=== PATIENT | female | born 1955 | race Caucasian/White ===

== ENCOUNTER → 2017-04-23 | Outpatient (CLI) | payer OTHER ==
--- NOTE | 2017-04-23 15:34 | WWHP ---
[facility] - HISTORY AND PHYSICAL DATE OF DICTATION: 04/23/2017 CHIEF COMPLAINT: The patient is here for her routine gynecologic exam and mammogram. HPI: This is a 61-year-old, G3, P3 with an LMP of 1998. The patient is without gynecologic complaints and denies any postmenopausal bleeding. PAST MEDICAL HISTORY: COPD with Alpha-1 antitrypsin deficiency, gastroesophageal reflux disease, elevated cholesterol, tachycardia, and osteopenia. She has completed a 5-year use of Fosamax. MEDICATIONS: 1. Benzonatate 100 mg t.i.d. p.r.n. 2. Doxycycline 100 mg 1 b.i.d. 3. Mucinex generic 600 mg b.i.d. 4. Prednisone 10 mg as directed. 5. Tylenol #3 one q.6 hours p.r.n. 6. Albuterol inhaler 2 puffs q.4 hours p.r.n. 7. Alprazolam 0.25 mg t.i.d. p.r.n. 8. Atenolol 25 mg daily. 9. Symbicort generic 2 puffs b.i.d. 10.Calcium with vitamin D 1 tablet daily. 11.Hydrochlorothiazide 12.5 mg daily. 12.Xopenex generic nebulizer used q.i.d. 13.Singulair generic 10 mg daily. 14.Omeprazole 20 mg daily. 15.Alpha-1 proteinase inhibit 1 infusion per week. 16.Simvastatin 20 mg daily. 17.Vitamin B12 two hundred fifty mcg daily. 18.Vitamin D3 two thousand units daily. ALLERGIES: No known drug allergies. 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 SOCIAL HISTORY: She quit smoking in 1995 and has about 1 alcohol-containing drink per year. She denies drug use. She is and is not seeing anybody at this time. She is considered disabled. REVIEW OF SYSTEMS: She has gained about 40 pounds over the last year. She denies cardiac or GI problems. RESPIRATORY: She has continued to have COPD issues, but it has been relatively stable recently. : She does have situations where she has to get to the bathroom right away or she will leak. PHYSICAL EXAM: Blood pressure 130/62, height 5 feet 4 inches, weight 241 pounds, temperature 96.7, pulse 94. This is a well-developed, obese white female who is alert and oriented x3, in no acute distress. HEENT is within normal limits. NECK: Supple without mass or thyromegaly. CHEST AND LUNGS: There is prolonged expiration without wheezes, consistent with her COPD. There is no significant rales or rhonchi noted. Breath sounds are somewhat distant. HEART: Regular rate and rhythm. Breasts are without mass or discharge. Axillary exam is negative for adenopathy. BACK: Negative for CVA tenderness. ABDOMEN: Obese, soft, nontender, without palpable masses. PELVIC EXAM: External genitalia reveals mild atrophy without lesions. Cervix and vagina reveals mild atrophy without lesions. There is no evidence of prolapse. By manual exam, the uterus is mid position, nongravid size and nontender. There are no palpable adnexal masses or tenderness. By manual exam is somewhat limited secondary to her size. Rectovaginal exam is negative for mass or tenderness and is negative for occult blood. EXTREMITIES: Nontender. IMPRESSION: 1. A 61-year-old menopausal female with normal gynecologic exam. 2. Multiple medical problems. 3. Obesity. 4. History of osteopenia, status post 5 years use of Fosamax which was discontinued in the past. PLAN: 1. Pap smear was performed. 2. Self breast examination was discussed. 3. Mammogram will be done today. 4. Osteoporosis prevention was discussed. Will do a bone density test today. 5. She will return in 1 year. MMODL / IJN: [id number] /
--- NOTE | 2017-04-24 11:21 | BD ---
EXAMINATION TYPE: MG DEXA axial skeleton. DATE OF EXAM: 04/23/2017 COMPARISON: 04/08/2012 CLINICAL HISTORY: Postmenopausal female. Screening. Height: 64 IN Weight: 238 LBS FRAX RISK QUESTIONS: Alcohol (3 or more units per day): NO Family History (Parent hip fracture): NO Glucocorticoids (More than 3mos): YES 30 MG 3 TIMES PER DAY (Ex: prednisone, prednisolone, methylprednisolone, dexamethasone, and hydrocortisone). History of Fracture in Adulthood: NO Secondary Osteoporosis: 1. Type 1 Diabetes: NO 2. Hyperthyroidism: NO 3. Menopause before 45: YES AGE 41 4. Malnutrition: NO 5. Chronic liver disease: NO Rheumatoid Arthritis: NO Current Tobacco Use: NO RISK FACTORS HISTORY OF: Active: VERY LIMITED Diet low in dairy products/other sources of calcium: YES Postmenopausal woman: AGE 41 Take estrogen and/or progesterone medications: NOT NOW How long: AGE 38 - 41 Poor Health: YES MEDICATIONS: Prednisone or other steroids: YES 30 MG X 3 TIMES PER DAY How Lon + YEARS Osteoporosis Medications: NONE NOW Which medication: Actonel How Long: AGE 50 - 55 Additional Medications: CALCIUM, VIT D, DOXYCYCLINE,GUAIFENNESIN, PREDNISONE,ACETAMINOPHEN-CODEINE, A LBUTEROL, ALPRAZOLAM, ATENOLOL, BUDESONIDE-FORMOTEROL, CETRIZINE,HCTZ, LEVALBUTEROL, MONTELUKAST, OME PRAZOLE, PROLASTIN-C, SIMVASTATIN, VIT B12, EXAM MEASUREMENTS: Bone mineral densitometry was performed using the Macromill System. Bone mineral density as measured about the Lumbar spine is: ----- L1-L4(G/cm2): 1.101 T Score Values are as follows: ----- L2: -0.8 ----- L3: -0.9 ----- L4: -0.4 ----- L1-L4: -0.7 Bone mineral density has: Increased 3.9% since study of: 04/08/2012 Bone mineral density about the R hip (g/cm2): 0.832 Bone mineral density about the L hip (g/cm2): 0.862 T Score values are as follows: -----R Neck: -1.5 -----L Neck: -1.3 -----R Total: -0.9 -----L Total: -1.2 Bone mineral density has: Decreased -0.8% since study of: 04/08/2012 IMPRESSION: Osteopenia (T Score between -2.5 and -1 ) as noted by T score values with regards to both hips. There is slightly increased risk of fracture and the patient may be considered for treatment. Re-Screen 2-5 years. NOTE: T-SCORE=SD OF THE YOUNG ADULT MEAN.
--- NOTE | 2017-04-25 08:15 | MM ---
Reason for exam: screening (asymptomatic). Last mammogram was performed 2 years ago. History: Patient is postmenopausal. Family history of premenopausal breast cancer in maternal cousin. Took estrogen for 3 years 1 month. Physical Findings: A clinical breast exam by your physician is recommended on an annual basis and results should be correlated with mammographic findings. MG 3D Screening Mammo W/Cad Bilateral CC and MLO view(s) were taken. Prior study comparison: April 26, 2015, bilateral MG 3d diag mammo w/cad [facility]. October 21, 2014, right breast MG diagnostic mammo RT w CAD. There are scattered fibroglandular densities. Stable benign calcifications. There is no discrete abnormality. No significant changes when compared with prior studies. ASSESSMENT: Benign, BI-RAD 2 RECOMMENDATION: Routine screening mammogram of both breasts in 1 year.
== END | disposition home or self-care (01) ==
LOC: WWCWWP 13:42
PROVIDERS: ATTEND Obstetrics & Gynecology
DX: Z12.31 Encounter for screening mammogram for malignant neoplasm of breast (principal); M85.852 Other specified disorders of bone density and structure, left thigh; M85.851 Other specified disorders of bone density and structure, right thigh
CPT/HCPCS: 77080; 77063; G0202

== ENCOUNTER → 2018-11-04 | Outpatient (CLI) | payer MEDICARE, OTHER ==
--- NOTE | 2018-11-04 13:11 | US ---
EXAMINATION TYPE: US venous doppler duplex LE RT DATE OF EXAM: 11/04/2018 12:43 PM COMPARISON: NONE CLINICAL HISTORY: R60.9 edema. Right leg swelling, no pain SIDE PERFORMED: Right TECHNIQUE: The lower extremity deep venous system is examined utilizing real time linear array sonog diogenes with graded compression, doppler sonography and color-flow sonography. VESSELS IMAGED: External Iliac Vein (EIV) Common Femoral Vein Deep Femoral Vein Greater Saphenous Vein * Femoral Vein Popliteal Vein Small Saphenous Vein * Proximal Calf Veins (* superficial vessels) Grayscale, color doppler, spectral doppler imaging performed of the deep veins of the right lower ext remity. There is normal flow, compressibility, vascular waveforms. Right Leg: Negative for DVT IMPRESSION: No sonographic evidence of deep venous thrombosis within the right lower extremity.
== END | disposition home or self-care (01) ==
LOC: RADUSWWP 11:59
PROVIDERS: ATTEND Family Medicine
DX: R60.9 Edema, unspecified (principal)